=== PATIENT | male | born 1975 | race Caucasian/White ===

== ENCOUNTER 2021-08-01 20:57 | Emergency (ER) | payer BC ==
--- NOTE | 2021-08-01 22:07 | EDM.PDOC ---
ED HPI GENERAL MEDICAL PROBLEM - General Chief Complaint: Flank Pain Stated Complaint: ABDOMINAL PAIN/ BACK PAIN Time Seen by Provider: 08/01/21 22:01 - History of Present Illness INITIAL COMMENTS - FREE TEXT/NARRATIVE: 46-year-old male presents the emergency room with abdominal pain. At approximately 7 PM this evening the patient had sudden onset left flank pain. He had some associated nausea and vomiting with this. Has not had any fevers or chills. Patient has never had pain like this in the past. Patient has no history of kidney stones. No significant history of abdominal surgeries. Left Flank Pain Score (Numeric/FACES): 10 - Related Data Allergies Allergy/AdvReac Type Severity Reaction Status Date / Time No Known Allergies Allergy Verified 08/01/21 22:00 Home Meds: Home Meds . [No Known Home Meds] 08/01/21 [History] ED ROS GENERAL - Review of Systems Review Of Systems: See Below Constitutional: Reports: No Symptoms HEENT: Reports: No Symptoms Respiratory: Reports: No Symptoms Cardiovascular: Reports: No Symptoms GI/Abdominal: Reports: Abdominal Pain (Left-sided with associated flank pain), Nausea, Vomiting. Denies: Constipation, Diarrhea : Reports: Flank Pain. Denies: Discharge, Dysuria, Frequency, Hematuria, Urgency Musculoskeletal: Reports: No Symptoms Skin: Reports: No Symptoms Neurological: Reports: No Symptoms ED EXAM, GENERAL - Physical Exam Exam: See Below Exam Limited By: No Limitations General Appearance: Alert, No Apparent Distress Head: Atraumatic, Normocephalic Neck: Normal Inspection, Supple, Non-Tender, Full Range of Motion Respiratory/Chest: No Respiratory Distress, Lungs Clear, Normal Breath Sounds Cardiovascular: Regular Rate, Rhythm, No Edema, No Murmur GI/Abdominal: Normal Bowel Sounds, Soft, Other (Palpation does not make the pain worse however he is got significant left-sided abdominal discomfort no rigidity rebound or guarding) Back Exam: Normal Inspection. No: CVA Tenderness (L), CVA Tenderness (R) Neurological: Alert, Oriented, Normal Cognition Course - Vital Signs Last Recorded V/S: Last Vital Signs Temp 36.8 C 08/01/21 21:58 Pulse 92 08/01/21 21:58 Resp 20 08/01/21 21:58 BP 144/82 H 08/01/21 21:58 Pulse Ox 100 08/01/21 21:58 - Orders/Labs/Meds Orders: Active Orders 24 hr Category Date Time Status Abdomen Pelvis wo Cont [CT] Stat Exams 08/01/21 22:09 Taken Labs: Laboratory Tests 08/01/21 08/01/21 Range/Units 22:10 22:10 WBC 11.43 H (4.23-9.07) K/mm3 RBC 5.31 (4.63-6.08) M/mm3 Hgb 16.1 (13.7-17.5) gm/dl Hct 46.0 (40.1-51.0) % MCV 86.6 (79.0-92.2) fl MCH 30.3 (25.7-32.2) pg MCHC 35.0 (32.2-35.5) g/dl RDW Std Deviation 40.9 (35.1-43.9) fL Plt Count 270 (163-337) K/mm3 MPV 9.6 (9.4-12.3) fl Neut % (Auto) 82.7 H (34.0-67.9) % Lymph % (Auto) 9.0 L (21.8-53.1) % [place] % (Auto) 7.3 (5.3-12.2) % Eos % (Auto) 0.4 L (0.8-7.0) Baso % (Auto) 0.2 (0.1-1.2) % Neut # (Auto) 9.45 H (1.78-5.38) K/mm3 Lymph # (Auto) 1.03 L (1.32-3.57) K/mm3 [place] # (Auto) 0.83 H (0.30-0.82) K/mm3 Eos # (Auto) 0.05 (0.04-0.54) K/mm3 Baso # (Auto) 0.02 (0.01-0.08) K/mm3 Sodium 140 (136-145) mEq/L Potassium 4.1 (3.5-5.1) mEq/L Chloride 105 (98-107) mEq/L Carbon Dioxide 25 (21-32) mEq/L Anion Gap 14.1 (5-15) BUN 17 (7-18) mg/dL Creatinine 1.5 H (0.7-1.3) mg/dL Est Cr Clr Drug Dosing TNP Estimated GFR (MDRD) 51 (>60) mL/min BUN/Creatinine Ratio 11.3 L (14-18) Glucose 208 H (70-99) mg/dL Calcium 9.1 (8.5-10.1) mg/dL Total Bilirubin 0.4 (0.2-1.0) mg/dL AST 31 (15-37) U/L ALT 66 H (16-63) U/L Alkaline Phosphatase 113 (46-116) U/L Total Protein 7.6 (6.4-8.2) g/dl Albumin 4.3 (3.4-5.0) g/dl Globulin 3.3 gm/dL Albumin/Globulin Ratio 1.3 (1-2) Meds: Medications Discontinued Medications Generic Name Dose Route Start Last Admin Trade Name Freq PRN Reason Stop Dose Admin Hydrocodone Bitart/Acetaminophen 1 tab 08/01/21 23:18 08/01/21 23:29 Acetaminophen/Hydrocodone 325-5 Mg Tab PO 08/01/21 23:19 1 tab ONETIME ONE Administration Fentanyl 50 mcg 08/01/21 22:09 08/01/21 22:24 Fentanyl 100 Mcg/2 Ml Sdv IVPUSH 08/01/21 22:10 50 mcg ONETIME ONE Administration Fentanyl 50 mcg 08/01/21 23:18 08/01/21 23:29 Fentanyl 100 Mcg/2 Ml Sdv IVPUSH 08/01/21 23:19 50 mcg ONETIME ONE Administration Lactated Ringer's 1,000 mls @ 100 mls/hr 08/01/21 22:15 08/01/21 22:25 Ringers, Lactated IV 100 mls/hr ASDIRECTED IRMA Administration Ondansetron HCl 4 mg 08/01/21 22:09 08/01/21 22:24 Ondansetron 4 Mg/2 Ml Sdv IVPUSH 08/01/21 22:10 4 mg ONETIME ONE Administration Tamsulosin HCl 0.8 mg 08/02/21 10:00 Tamsulosin 0.4 Mg Cap.Er PO PCBREAKFAST IRMA - Re-Assessments/Exams Free Text/Narrative Re-Assessment/Exam: 08/02/21 00:19 She is doing better at this time CT does confirm a kidney stone on the left side as he is still symptomatic I suspect it is at the UVJ. Radiology could not be certain if it was in the bladder or in the UVJ this measures 7 x 5 mm. I stressed the importance of close follow-up and straining the urine to be sure that this thing passes. Also he is getting follow-up on his creatinine and agrees to follow-up with his regular healthcare provider in [place] on Monday. Departure - Departure Time of Disposition: 00:21 Disposition: Home, Self-Care 01 Clinical Impression: Calculus of left kidney, Renal colic on left side - Discharge Information Instructions: Kidney Stones, [id number] Referrals: PCP,Not In Area [Primary Care Provider] - Forms: ED Department Discharge Additional Instructions: Return to the emergency room with any questions problems or worsening symptoms. Strain all your urine and try and capture the stone it is essential that we know for sure you passed the stone. Follow-up with your regular healthcare provider on Monday for recheck. I have given you 3 medications from the machine out in the waiting room one of them is Flomax 0.4 mg #7 you take this once a day this might help your urinary tract muscles relax a little bit to facilitate stone passage. The second medication is hydrocodone 5/325 #20, this is for pain, take 1 or 2 every 6 hours as needed. With the hydrocodone be sure and allow 12 hours after using this medication before driving or returning to work. The third is Zofran 4 mg #10 it is for nausea and vomiting take 1 every 6 hours as needed. Sepsis Event Note (ED) - Evaluation Sepsis Screening Result: No Definite Risk - Focused Exam Vital Signs: Vital Signs Temp Pulse Resp BP Pulse Ox 08/01/21 21:58 36.8 C 92 20 144/82 H 100 - My Orders Last 24 Hours: My Active Orders 08/01/21 22:09 Abdomen Pelvis wo Cont [CT] Stat - Assessment/Plan Last 24 Hours: My Active Orders 08/01/21 22:09 Abdomen Pelvis wo Cont [CT] Stat
[2021-08-01] MEDS ORDERED: fentaNYL 100 MCG/2 ML SDV IVPUSH ONE ×2 (22:09→23:18)
[2021-08-01] MEDS ORDERED: Ondansetron 4 MG/2 ML SDV IVPUSH ONE (22:09)
[2021-08-01] MEDS ORDERED: Lactated Ringers 1,000 ML IV SCH (22:15)
[2021-08-01] MEDS ORDERED: Acetaminophen/HYDROcodone 325-5 MG Tab PO ONE (23:18)
--- NOTE | 2021-08-02 07:58 | CT ---
CT abdomen and pelvis Technique: Multiple axial sections were obtained from above the dome of the diaphragm inferiorly through the pubic symphysis. Intravenous and oral contrast were not utilized. Study has been performed as a ureteral stone protocol. Reconstructed coronal and sagittal images were obtained. Comparison: No prior CT abdomen or pelvis exam is available. Findings: Slight dilated left renal pelvis is seen as well as left ureter. Minimal inflammatory change is also noted around the left kidney and ureter. No abnormal calcifications are seen within the ureter. There is a calcification being seen within the bladder measuring 7 mm. This presumably represents a recently passed calculus but could possibly represent a stone within the distal UVJ. No other ureteral calcifications are seen. Kidneys show no additional abnormal calcifications. Cyst measuring 2.1 cm is noted within the right kidney. Visualized lung bases appear clear. Liver shows no focal abnormality. Spleen size is normal. Adrenal glands show no nodule. Pancreas is within normal limits. Gallbladder contains no calcified gallstones. Abdominal aorta shows no aneurysm. No retroperitoneal adenopathy or mesenteric abnormalities are seen. Appendix is seen which is normal. No pelvic mass or adenopathy is seen. No free fluid is seen. Small fat-containing umbilical hernia is noted. Bone window settings were reviewed. No acute osseous abnormality is appreciated. Impression: 1. Dilated left renal pelvis and left ureter. Calcification is noted within the bladder measuring 7 mm. This most likely represents a recently passed ureteral calculus. This less likely represents a stone within the distal left UVJ. Please correlate with the patient's symptoms. 2. Small cyst within the right kidney. 3. Other findings believed to be incidental as noted above. Diagnostic code #3 I agree with preliminary report from [facility], finalized on 08/02/21, 12:03 AM CDT, code 1
[2021-08-02] MEDS ORDERED: Tamsulosin 0.4 MG Cap.ER PO SCH (10:00)
== END 2021-08-02 00:38 | disposition home or self-care (01) ==
LOC: JD.ED 20:57
DX: N20.0 Calculus of kidney (principal)
CPT/HCPCS: 36415; 74176; 80053; 85025; 96374; 96375; 96376; 99284; A9270; J2405; J3010; J7120